=== PATIENT | male | born 1985 | race Caucasian/White ===

== ENCOUNTER 2017-12-02 09:46 | Emergency (ER) | payer BC, SELFPAY ==
[2017-12-02 09:51] VITALS: BP 129/83; PULSE 76; RESP 16; TEMP 36.8; O2SAT 98
[2017-12-02] MEDS: Indomethacin 25 MG CAP 50 MG PO (10:32)
--- NOTE | 2017-12-02 10:46 | ED.GENADUL_ITS ---
Discharge Plan Disposition Patient Disposition: HOME Condition: Stable Discharge Details Chief Complaint: Orthopedic Clinical Impression: Gout attack ED Provider: Bill Chavis Home Meds and New Rx's Prescriptions: New indomethacin 50 mg capsule 50 mg PO TID Qty: 14 RF: 0 Discontinued ibuprofen [IBU-200] 200 mg Tablet 800 mg PO PRN PRNRF: 0 Discharge Instructions Instructions: Gout (ED) Additional Instructions: Return to the emergency department for any new or worsening symptoms including similar effects to other joints, fever or chills, flulike symptoms. Otherwise follow-up with a primary care provider in the next couple weeks for reassessment. He may Contact our care management team as needed for establishment of primary care if you have any difficulties Stand Alone Forms: Work Release Referrals: Primary Care Provider [Outside] Medical Decision Making Patient presenting to the emergency department for chief complaint of right lower extremity pain and discomfort. Patient states that this occurred a couple years ago with similar presentation and he was diagnosed with gout. He states at that time he had been a heavy drinker but he has recently cut back significantly on his alcohol intake. Patient states that he feels his great toe is swollen and painful. He does state that he had 6 beers this last weekend but otherwise denies any food or excessive alcohol intake in the last couple days. He did take some ibuprofen yesterday but states significant to severe discomfort today. Patient denies any other joint involvement. Physical exam does show positive findings for great toe metatarsal phalanx joint tenderness, mild swelling, mild erythema. Otherwise physical exam is unremarkable. Patient does have high suspicion for gout. Patient has no other medical complaints and no past medical history so I do not feel that labs are needed or warranted at this time. Patient was encouraged to follow-up with primary care provider for reassessment and patient placed upon indomethacin send 50 mg 3 times daily for the next 3 days but he was given a prescription for a full 5-day course if needed. After discussion of diagnosis and plan of care patient has no further needs, questions, or concerns and states clear understanding to return to the emergency department for any worsening symptoms. HPI General Mode of arrival: ambulatory . Date/Time Provider Initiated Documentation: 12/02/17 09:48 . Limitations to Documentation: no limitations . Information obtained by: patient and RN notes reviewed . History of Present Illness 32 year old M presents to the emergency department with the chief complaint of right toe/foot pain, described as severe, with intensity rated at 9. Quality is described as sharp, and is localized to the right and lower extremity. Patient started experiencing this day(s) (1) and it has been constant. No relieving factors improve symptom(s), No exacerbating factors reported . Patient notes no other symptoms.. Patient did receive the following treatments prior to arrival, NSAID (800mg yesterday) Related Data Home Medications Medication Instructions Recorded Confirmed indomethacin 50 mg PO TID #14 cap 12/02/17 Previous Rx's Medication Instructions Recorded indomethacin 50 mg PO TID #14 cap 12/02/17 Allergies Allergy/AdvReac Type Severity Reaction Status Date / Time No Known Allergies Allergy Unverified 12/02/17 09:57 General Stated Complaint: Orthopedic SHANE: 4 Review of Systems Constitutional Denies chills, Denies fever(s) and Denies malaise Cardiovascular Denies chest pain, Denies edema and Denies dyspnea Respiratory Denies dyspnea Musculoskeletal Reports as per HPI Integumentary/Breasts Denies rash PFSH Social History Smoking/Tobacco Use Status: Never alcohol intake: current alcohol intake frequency: a few times a week Alcohol type: beer Exam Const General: healthy appearing, comfortable and no acute distress Orientation: alert, awake and oriented x3 Resp Effort & Inspection: normal respiratory effort and able to speak in complete sentences Cardio Rate: regular rate Rhythm: regular rhythm Extrem Right lower extremity: normal capillary refill, lower leg Details: normal to inspection; no erythema and no tenderness, ankle Details: normal to inspection and normal ROM; no tenderness, no swelling and edema and foot Details: normal capillary refill, abnormal to inspection Details: erythematous (mild to great toe), tenderness Location: of the great toe Location: at the MTP joint, toes with normal ROM, edema Location: of the great toe, vascular exam Details: dorsalis pedis pulse present, posterior tibial pulse present and normal capillary refill, tendon exam Details: active flexion normal and active extension normal and motor-sensory exam Details: two point discrimination normal and light-touch normal; no unusual warmth Left lower extremity: normal to inspection, full ROM and normal capillary refill Course Vital Signs Temperature 36.8 C 12/02/17 09:51 Pulse 76 12/02/17 09:51 Respiratory Rate 16 12/02/17 09:51 Blood Pressure 129/83 12/02/17 09:51 Pulse Oximetry 98 12/02/17 09:51 Temperature 36.8 C 12/02/17 09:51 Temperature Source Temporal Artery Scan 12/02/17 09:51 Pulse 76 12/02/17 09:51 Respiratory Rate 16 12/02/17 09:51 Respiratory Effort Non-Labored 12/02/17 09:55 Blood Pressure 129/83 12/02/17 09:51 Blood Pressure Position Sitting 12/02/17 09:51 Pulse Oximetry 98 12/02/17 09:51 Oxygen Delivery Method Room Air 12/02/17 09:51 Oxygen Flow Rate 0 12/02/17 09:51 Pain Level 10 12/02/17 09:58
== END 2017-12-02 10:55 | disposition home or self-care (01) ==
LOC: ER 11:03
PROVIDERS: Emergency Provider Nurse Practitioner Family
DX: M10.9 Gout, unspecified (principal)
CPT/HCPCS: 99283